=== PATIENT | female | born 1980 | race Caucasian/White ===

== ENCOUNTER 2017-11-16 20:45 | Emergency (ER) | payer OTHER ==
[~2017-11-16] VITALS: Ht 162.5 cm; Wt 56.7 kg
--- NOTE | ~2017-11-16 | EKG ---
[place], [place] ELECTROCARDIOGRAM REPORT NAME: PARAG CONNOR UNIT #: [id number] ROOM: DOCTOR: EPIPHANY DRAFT REPORT BIRTHDATE: [birth year] [facility] Test Date: 2017-11-16 Test Time: 21:54:54 Pat Name: PARAG CONNOR Department: ER Room: Gender: F Music Education Director: Mallory Srivastava : 1980 Requested By: ALFONSO TIAN Order Number: [id number] Reading MD: Ruel Perez MD Measurements Intervals [place] Rate: 81 P: 72 [place]: 140 QRS: 45 QRSD: 72 T: 44 QT: 393 QTc: 457 Interpretive Statements Sinus rhythm Baseline wander in lead(s) III Electronically Signed On 11-17-2017 13:45:14 PDT by Ruel Perez MD CM:EKGRPT:ELECTROCARDIOGRAM REPORT [id number] ALFONSO FERMIN DRAFT REPORT ALFONSO TIAN DO
[2017-11-16 22:05] LABS: BASO # 0.1 10*3/uL (0.0-0.1); BASO % 0.8 % (0.0-1.0); EOS # 0.1 10*3/uL (0.0-0.4); EOS % 1.5 % (1.0-4.0); HEMATOCRIT 38.6 % (37.0-47.0); HEMOGLOBIN 13.1 g/dl (12.0-16.0); LYMPH # 3.1 10*3/uL (1.3-4.4); LYMPH % 36.2 % (27.0-41.0); MEAN CELL VOLUME 94.6 fl (81.0-99.0); MEAN CORPUSCULAR HGB 32.1 pg (27.0-31.0); MEAN CORPUSCULAR HGB CONC 33.9 g/dl (33.0-37.0); MEAN PLATELET VOLUME 9.4 fl (9.6-12.3); MONO # 0.9 10*3/uL (0.1-1.0); MONO % 10.7 % (3.0-9.0); NEUT # 4.3 10*3/uL (2.3-7.9); NEUT % 50.6 % (47.0-73.0); PLATELET COUNT AUTOMATED 294 10*3/uL (130-400); RED BLOOD COUNT 4.08 10*6/uL (4.10-5.10); RED CELL DISTRI WIDTH 12.5 % (0-14.5); WHITE BLOOD COUNT 8.5 10*3/uL (4.8-10.8)
[2017-11-16 22:15] LABS: ACT PARTIAL THROMBO TIME 26.2 SECONDS (20.8-31.5)
[2017-11-16 22:23] LABS: ALBUMIN 3.9 gm/dl (3.1-4.5); ALKALINE PHOSPHATASE 103 U/L (45-117); BUN 9 mg/dl (7-24); CHLORIDE 110 mmol/L (98-107); CREATININE 0.64 mg/dL (0.55-1.02); POTASSIUM 3.6 mmol/L (3.5-5.1); SGOT/AST 16 IU/L (3-35); SGPT/ALT 28 U/L (12-78); SODIUM 142 mmol/L (136-145); TOTAL PROTEIN 6.9 gm/dL (6.4-8.2)
[2017-11-16 22:27] LABS: TROPONIN I < 0.015 ng/ml (<0.045)
[2017-11-16 22:48] VITALS: BP 116/70
== END 2017-11-16 23:45 | disposition home or self-care (01) ==
LOC: ED 20:45
PROVIDERS: Student in an Organized Health Care Education/Training Program
DX: R51 Headache (principal)

== ENCOUNTER 2024-06-07 19:06 | Emergency (ER) | payer OTHER ==
[~2024-06-07] VITALS: Ht 162.5 cm; Wt 59.0 kg
[2024-06-07 19:10] VITALS: BP 130/56
[2024-06-07] MEDS ORDERED: PREDNISONE50 MG PO (19:47)
[2024-06-07] MEDS ORDERED: CYCLOBENZAPRINE5 M3 PO (19:47)
[2024-06-07] MEDS ORDERED: NAPROSYN500 MG PO (19:47)
[2024-06-07] MEDS ORDERED: methylPREDNISolone sod succ 125 MG VIAL IM ONE (19:50)
[2024-06-07] MEDS ORDERED: Ketorolac Tromethamine 30 MG/ML VIAL IM ONE (19:50)
== END 2024-06-07 20:05 | disposition home or self-care (01) ==
LOC: ED 19:06
DX: G89.29 Other chronic pain (principal); M54.50 Low back pain, unspecified; G43.909 Migraine, unspecified, not intractable, without status migrainosus